=== PATIENT | female | born 1950 | race Caucasian/White ===

== ENCOUNTER 2017-01-06 10:50 | Emergency (ER) | payer MEDICARE, OTHER ==
[~2017-01-06] VITALS: Ht 167.6 cm; Wt 70.3 kg
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
[2017-01-06] MEDS ORDERED: TRAMADOL HCL 50 MG TABLET ONE (11:27)
[2017-01-06] MEDS ORDERED: TRAMADOL HCL 50 MG TABLET PO ONE (11:30)
--- NOTE | 2017-01-06 11:34 | NUR ---
pt medicated as ordered
--- NOTE | 2017-01-06 12:31 | NUR ---
Patient discharged to home in stable condition. Written and verbal after care instructions given. Patient verbalizes understanding of instruction.
[2017-01-06 12:32] VITALS: BP 135/80
== END 2017-01-06 12:32 | disposition home or self-care (01) ==
LOC: ER 10:52
DX: R07.9 Chest pain, unspecified (principal); M54.2 Cervicalgia; I10 Essential (primary) hypertension; V43.52XA Car driver injured in collision with other type car in traffic accident, initial encounter; Y93.89 Activity, other specified; Y92.89 Other specified places as the place of occurrence of the external cause; Y99.9 Unspecified external cause status
CPT/HCPCS: 71010-TC; A4606; Z7610

== ENCOUNTER 2023-05-26 11:35 | Inpatient (IN) | payer BC, MEDICARE, OTHER ==
[~2023-05-26] VITALS: Ht 167.6 cm; Wt 74.4 kg
[2023-05-26] MEDS ORDERED: methylPREDNISolone ACETATE 80 MG/ML VIAL ONE (11:58)
[2023-05-26] MEDS ORDERED: KETOROLAC TROMETHAMINE INJ 30 MG/ML VIAL ONE (11:59)
[2023-05-26] MEDS ORDERED: CYCLOBENZAPRINE 10 MG TABLET ONE (11:59)
[2023-05-26] MEDS ORDERED: MORPHINE SULFATE INJ 2 MG/ML DISP.SYRIN ONE ×2 (11:59→13:31)
[2023-05-26] MEDS ORDERED: KETOROLAC TROMETHAMINE INJ 30 MG/ML VIAL IM ONE (12:00)
[2023-05-26] MEDS ORDERED: MORPHINE SULFATE INJ 2 MG/ML DISP.SYRIN IM ONE ×2 (12:00→13:30)
[2023-05-26] MEDS ORDERED: CYCLOBENZAPRINE 10 MG TABLET PO ONE (12:00)
[2023-05-26] MEDS ORDERED: methylPREDNISolone ACETATE 40 MG/ML VIAL IM ONE (12:00)
[2023-05-26] MEDS ORDERED: methylPREDNISolone SOD SUCC 40 MG/ML VIAL ONE (12:19)
[2023-05-26] MEDS ORDERED: methylPREDNISolone SOD SUCC 40 MG/ML VIAL IM ONE (12:30)
[2023-05-26] MEDS ORDERED: TRAM50TA2 PO (14:11)
[2023-05-26] MEDS ORDERED: CARV25TA2 PO (14:11)
[2023-05-26] MEDS ORDERED: LORA-259 PO (14:11)
[2023-05-26] MEDS ORDERED: METF-442 PO (14:11)
[2023-05-26] MEDS ORDERED: AMLO2.5T4 PO (14:11)
[2023-05-26] MEDS ORDERED: OXYC-133 PO (14:11)
[2023-05-26] MEDS ORDERED: ZOLP5TAB2 PO (14:11)
[2023-05-26 15:00] LABS: BASOPHILS % (AUTO) 0.6 % (0.0-2.0); EOSINOPHILS # (AUTO) 0.1 K/uL (0.0-0.7); HEMATOCRIT 37 % (33-45); HEMOGLOBIN 12.1 g/dL (11.5-14.8); LYMPHOCYTES # (AUTO) 1.3 K/uL (0.8-4.8); LYMPHOCYTES % (AUTO) 15.4 % (20.0-44.0); MEAN CORPUSCULAR HEMOGLOBIN 27 PG (26.0-33.0); MEAN CORPUSCULAR HGB CONC 33 g/dl (31.0-36.0); MEAN CORPUSCULAR VOLUME 83 fL (82-100); MONOCYTES # (AUTO) 0.2 K/uL (0.1-1.30); MONOCYTES % (AUTO) 2.5 % (2.0-12.0); NEUTROPHILS % (AUTO) 80.5 % (43.0-81.0); PLATELET COUNT (AUTO) 283 K/uL (150-450); RED BLOOD CELL COUNT(AUTO) 4.46 MIL/uL (4.0-5.2); RED CELL DISTRIBUTION WIDTH 14.9 % (11.5-15.0); WHITE BLOOD COUNT (AUTO) 8.6 K/uL (4.3-11.0)
[2023-05-26] MEDS ORDERED: ZOLPIDEM TARTRATE 5 MG TABLET PO PRN (15:00)
[2023-05-26] MEDS ORDERED: Z GUARD REMEDY 4 OZ OINT TP PRN (15:00)
[2023-05-26] MEDS ORDERED: DEXTROSE 50%-WATER 50 ML DISP.SYRIN IV PRN (15:00)
[2023-05-26] MEDS ORDERED: ACETAMINOPHEN 325 MG TABLET PO PRN (15:00)
[2023-05-26] MEDS ORDERED: ONDANSETRON HCL/PF 4 MG/2 ML VIAL IVP PRN (15:00)
[2023-05-26] MEDS ORDERED: MAG HYDROX/AL HYDROX/SIMETH 30 ML UDC PO PRN (15:00)
[2023-05-26 15:16] LABS: CALCIUM, SERUM 9.3 mg/dL (8.5-10.1); CARBON DIOXIDE 29 mmol/L (21-32); CHLORIDE 101 mmol/L (98-107); CREATININE 1.1 mg/dL (0.6-1.3); GLUCOSE 146 mg/dL (74-106); POTASSIUM 4.2 mmol/L (3.5-5.1); SODIUM SERUM 138 mmol/L (136-145); UREA NITROGEN, BLOOD 14 mg/dL (7-18)
[2023-05-26 15:22] LABS: ALANINE AMINOTRANSFERASE 33 U/L (12-78); ALBUMIN 3.7 g/dL (3.4-5.0); ALCOHOL, BLOOD < 3 mg/dL (0-10); ALKALINE PHOSPHATASE 117 U/L (46-116); ASPARTATE AMINOTRANSFERASE 18 U/L (15-37); BILIRUBIN,DIRECT 0.1 mg/dL (0.0-0.2); BILIRUBIN,TOTAL 0.3 mg/dL (0.2-1.0)
[2023-05-26 15:23] LABS: ACETAMINOPHEN <10 ug/ml (10-30); SALICYLATE 1.8 mg/dL (2.8-20.0)
[2023-05-26 15:33] LABS: APPEARANCE,URINE CLEAR (CLEAR); BILIRUBIN,URINE NEGATIVE (NEGATIVE); BLOOD, URINE NEGATIVE Ery/uL (NEGATIVE); COLOR,URINE YELLOW (YELLOW); KETONES,URINE NEGATIVE (NEGATIVE); LEUKOCYTE ESTERASE ,URINE NEGATIVE (NEGATIVE); NITRITE, URINE POSITIVE (NEGATIVE); PROTEIN,URINE NEGATIVE (NEGATIVE); UGLUCOSE NEGATIVE (NEGATIVE); UROBILINOGEN,URINE 0.2 EU/dL (0.2)
[2023-05-26 15:37] LABS: AMPHETAMINE, URINE NEGATIVE (NEGATIVE); BARBITURATE, URINE NEGATIVE (NEGATIVE); BENZODIAZEPINE, URINE NEGATIVE (NEGATIVE); CANNABINOID, URINE NEGATIVE (NEGATIVE); COCCAINE, URINE NEGATIVE (NEGATIVE); PHENCYCLIDINE SCREEN,URINE NEGATIVE (NEGATIVE)
[2023-05-26 15:43] LABS: OPIATE, URINE POSITIVE (NEGATIVE)
[2023-05-26 15:45] LABS: ADD URINE CULTURE YES; BACTERIA,URINE None seen /HPF (None Seen); RBC,URINE 0-2 /HPF (0-2); SQUAMOUS EPITHELIAL CELL,UR 0-2 /HPF (None Seen); WBC,URINE 0-2 /HPF (0-3)
[2023-05-26] MEDS ORDERED: KETOROLAC TROMETHAMINE 15 MG/ML VIAL IV PRN (16:00)
[2023-05-26] MEDS: CARVEDILOL 12.5 MG TABLET PO SCH (16:32)
[2023-05-26] MEDS: MORPHINE SULFATE INJ 4 MG/ML DISP.SYRIN IV PRN (16:32)
[2023-05-26] MEDS: BLOOD SUGAR DIAGNOSTIC 1 EACH STRIP VI SCH ×2 (16:44→22:13)
[2023-05-26] MEDS: INSULIN REGULAR, HUMAN 100 UNIT/ML 3 ML VIAL SQ PRN ×2 (16:45→22:15)
[2023-05-26] MEDS: oxyCODONE/APAP (5/325 MG) 1 UDTAB TABLET PO PRN (18:45)
[2023-05-26 20:00] VITALS: BP 145/63; TEMP 97.6; O2SAT 96
[2023-05-26 21:04] VITALS: BP 145/63; TEMP 97.6; O2SAT 96
[2023-05-26] MEDS: LORAZEPAM INJ 2 MG/ML VIAL IV PRN (21:20)
[2023-05-26] MEDS: ZOLPIDEM TARTRATE 5 MG TABLET PO SCH (22:54)
[2023-05-26] MEDS: MAGNESIUM HYDROXIDE 30 ML UDC PO PRN (22:55)
[2023-05-27] VITALS: BP 151/104; O2SAT 96
[2023-05-27] MEDS: oxyCODONE/APAP (5/325 MG) 1 UDTAB TABLET PO PRN ×3 (00:09→18:11)
[2023-05-27 01:00] VITALS: BP 165/80
[2023-05-27] MEDS: LORAZEPAM INJ 2 MG/ML VIAL IV PRN (03:13)
[2023-05-27 06:02] LABS: BASOPHILS % (AUTO) 0.2 % (0.0-2.0); EOSINOPHILS % (AUTO) 0.1 % (0.0-6.0); HEMATOCRIT 36 % (33-45); HEMOGLOBIN 11.8 g/dL (11.5-14.8); LYMPHOCYTES # (AUTO) 1.4 K/uL (0.8-4.8); LYMPHOCYTES % (AUTO) 11.1 % (20.0-44.0); MEAN CORPUSCULAR HEMOGLOBIN 27 PG (26.0-33.0); MEAN CORPUSCULAR HGB CONC 33 g/dl (31.0-36.0); MEAN CORPUSCULAR VOLUME 82 fL (82-100); MONOCYTES # (AUTO) 0.7 K/uL (0.1-1.30); NEUTROPHILS # (AUTO) 10.1 K/uL (1.8-8.9); NEUTROPHILS % (AUTO) 82.6 % (43.0-81.0); PLATELET COUNT (AUTO) 287 K/uL (150-450); RED BLOOD CELL COUNT(AUTO) 4.37 MIL/uL (4.0-5.2); RED CELL DISTRIBUTION WIDTH 14.5 % (11.5-15.0); WHITE BLOOD COUNT (AUTO) 12.2 K/uL (4.3-11.0)
[2023-05-27 06:31] LABS: CALCIUM, SERUM 8.9 mg/dL (8.5-10.1); CREATININE 0.8 mg/dL (0.6-1.3); PHOSPHORUS 3.1 mg/dL (2.5-4.9); POTASSIUM 3.5 mmol/L (3.5-5.1)
[2023-05-27] MEDS: INSULIN REGULAR, HUMAN 100 UNIT/ML 3 ML VIAL SQ PRN ×2 (06:47→17:27)
[2023-05-27] MEDS: BLOOD SUGAR DIAGNOSTIC 1 EACH STRIP VI SCH ×4 (06:47→22:21)
[2023-05-27] MEDS ORDERED: CLONIDINE HCL 0.1 MG TABLET PO PRN (07:30)
[2023-05-27 08:39] VITALS: BP 131/76; TEMP 97.9; O2SAT 97
[2023-05-27] MEDS: MORPHINE SULFATE INJ 4 MG/ML DISP.SYRIN IV PRN (08:45)
[2023-05-27] MEDS: CARVEDILOL 12.5 MG TABLET PO SCH ×2 (08:49→17:29)
[2023-05-27] MEDS: AMLODIPINE BESYLATE 5 MG TABLET PO SCH ×2 (08:50→08:54)
[2023-05-27] MEDS ORDERED: QUETIAPINE FUMARATE 25 MG TABLET PO PRN (10:30)
[2023-05-27] MEDS: HYDROMORPHONE 1 MG/1 ML DISP.SYRIN IV PRN ×3 (11:06→22:21)
[2023-05-27] MEDS: methylPREDNISolone SOD SUCC 40 MG/ML VIAL IV SCH ×2 (11:45→17:29)
[2023-05-27 16:05] VITALS: BP 153/92; TEMP 98.3; O2SAT 98
[2023-05-27] MEDS: MAGNESIUM HYDROXIDE 30 ML UDC PO PRN (16:42)
[2023-05-27] MEDS: *INSULIN REGULAR(HUMULIN R)HUM 100 UNIT/ML VIAL SQ PRN (22:21)
[2023-05-27] MEDS: ZOLPIDEM TARTRATE 5 MG TABLET PO SCH (23:13)
[2023-05-28] MEDS: LORAZEPAM INJ 2 MG/ML VIAL IV PRN (01:32)
[2023-05-28] MEDS: methylPREDNISolone SOD SUCC 40 MG/ML VIAL IV SCH ×3 (02:21→17:20)
[2023-05-28] MEDS: HYDROMORPHONE 1 MG/1 ML DISP.SYRIN IV PRN ×4 (02:21→22:22)
[2023-05-28] MEDS: BLOOD SUGAR DIAGNOSTIC 1 EACH STRIP VI SCH ×4 (06:51→21:58)
[2023-05-28] MEDS: INSULIN REGULAR, HUMAN 100 UNIT/ML 3 ML VIAL SQ PRN ×2 (06:53→12:17)
[2023-05-28 07:30] VITALS: BP 159/87; TEMP 98.2; O2SAT 97
[2023-05-28] MEDS: AMLODIPINE BESYLATE 5 MG TABLET PO SCH ×2 (08:37→20:31)
[2023-05-28] MEDS: CARVEDILOL 12.5 MG TABLET PO SCH ×2 (08:38→17:21)
[2023-05-28] MEDS ORDERED: LORAZEPAM 1 MG TABLET PO PRN (10:30)
[2023-05-28 16:00] VITALS: BP 174/74; TEMP 98.8; O2SAT 98
[2023-05-28] MEDS: MAGNESIUM HYDROXIDE 30 ML UDC PO PRN (17:35)
[2023-05-28] MEDS ORDERED: AMLODIPINE BESYLATE 5 MG TABLET PO SCH (20:00)
[2023-05-28] MEDS: ZOLPIDEM TARTRATE 5 MG TABLET PO SCH (21:40)
[2023-05-28 21:48] VITALS: BP 170/85; TEMP 98.4; O2SAT 98
[2023-05-28] MEDS: *INSULIN REGULAR(HUMULIN R)HUM 100 UNIT/ML VIAL SQ PRN (22:05)
[2023-05-29] MEDS: methylPREDNISolone SOD SUCC 40 MG/ML VIAL IV SCH ×3 (01:26→17:30)
[2023-05-29] MEDS: oxyCODONE/APAP (5/325 MG) 1 UDTAB TABLET PO PRN ×3 (02:28→17:46)
[2023-05-29] MEDS: LORAZEPAM INJ 2 MG/ML VIAL IV PRN (04:10)
[2023-05-29 07:30] VITALS: BP 158/98; TEMP 98.6; O2SAT 98
[2023-05-29] MEDS: BLOOD SUGAR DIAGNOSTIC 1 EACH STRIP VI SCH ×4 (08:06→22:28)
[2023-05-29] MEDS: HYDROMORPHONE 1 MG/1 ML DISP.SYRIN IV PRN (08:40)
[2023-05-29] MEDS: METFORMIN 500 MG TABLET PO SCH ×2 (08:47→17:31)
[2023-05-29] MEDS: CARVEDILOL 12.5 MG TABLET PO SCH ×2 (08:49→17:32)
[2023-05-29] MEDS: hydrALAZINE HCL 25 MG TABLET PO SCH ×3 (08:50→20:47)
[2023-05-29] MEDS ORDERED: CLONIDINE HCL 0.1 MG TABLET PO PRN (10:00)
[2023-05-29] MEDS: DOCUSATE SODIUM 250 MG CAPSULE PO SCH ×2 (11:29→17:31)
[2023-05-29] MEDS: POLYETHYLENE GLYCOL 3350 17 GM POWD.PACK PO SCH (11:29)
[2023-05-29] MEDS ORDERED: MAGNESIUM HYDROXIDE 30 ML UDC PO PRN (11:30)
[2023-05-29] MEDS: INSULIN REGULAR, HUMAN 100 UNIT/ML 3 ML VIAL SQ PRN ×2 (12:38→17:46)
[2023-05-29] MEDS: HYDROMORPHONE INJ 2 MG/ML DISP.SYRIN IV PRN ×2 (15:49→20:13)
[2023-05-29 16:00] VITALS: BP 155/84; TEMP 98.6; O2SAT 97
[2023-05-29] MEDS: QUETIAPINE FUMARATE 25 MG TABLET PO SCH ×2 (17:32→20:50)
[2023-05-29 20:00] VITALS: BP 148/69; TEMP 98.5; O2SAT 98
[2023-05-29] MEDS: AMLODIPINE BESYLATE 5 MG TABLET PO SCH (20:14)
[2023-05-29] MEDS: ZOLPIDEM TARTRATE 5 MG TABLET PO SCH (22:17)
[2023-05-29] MEDS: *INSULIN REGULAR(HUMULIN R)HUM 100 UNIT/ML VIAL SQ PRN (22:33)
[2023-05-30] MEDS: HYDROMORPHONE INJ 2 MG/ML DISP.SYRIN IV PRN ×5 (01:13→21:17)
[2023-05-30] MEDS: methylPREDNISolone SOD SUCC 40 MG/ML VIAL IV SCH ×3 (02:14→17:01)
[2023-05-30] MEDS: hydrALAZINE HCL 25 MG TABLET PO SCH ×3 (05:00→21:17)
[2023-05-30] MEDS: BLOOD SUGAR DIAGNOSTIC 1 EACH STRIP VI SCH ×4 (06:54→22:52)
[2023-05-30] MEDS: INSULIN REGULAR, HUMAN 100 UNIT/ML 3 ML VIAL SQ PRN ×2 (07:04→12:09)
[2023-05-30 07:30] VITALS: BP 170/74; TEMP 98.1; O2SAT 97
[2023-05-30] MEDS: DOCUSATE SODIUM 250 MG CAPSULE PO SCH ×2 (08:39→16:05)
[2023-05-30] MEDS: METFORMIN 500 MG TABLET PO SCH ×2 (08:39→16:05)
[2023-05-30] MEDS: QUETIAPINE FUMARATE 25 MG TABLET PO SCH ×3 (08:39→21:17)
[2023-05-30] MEDS: CARVEDILOL 12.5 MG TABLET PO SCH ×2 (08:40→16:05)
[2023-05-30] MEDS: POLYETHYLENE GLYCOL 3350 17 GM POWD.PACK PO SCH (08:40)
[2023-05-30] MEDS: oxyCODONE/APAP (5/325 MG) 1 UDTAB TABLET PO PRN (11:46)
[2023-05-30 14:10] VITALS: BP 135/80
[2023-05-30 16:00] VITALS: BP 142/78; TEMP 99; O2SAT 97
[2023-05-30 20:00] VITALS: BP 159/65; TEMP 98.6; O2SAT 97
[2023-05-30] MEDS: AMLODIPINE BESYLATE 5 MG TABLET PO SCH (20:30)
[2023-05-30] MEDS: ZOLPIDEM TARTRATE 5 MG TABLET PO SCH (22:24)
[2023-05-30] MEDS: *INSULIN REGULAR(HUMULIN R)HUM 100 UNIT/ML VIAL SQ PRN (22:51)
[2023-05-31] MEDS: methylPREDNISolone SOD SUCC 40 MG/ML VIAL IV SCH ×3 (01:28→16:44)
[2023-05-31] MEDS: HYDROMORPHONE INJ 2 MG/ML DISP.SYRIN IV PRN ×3 (03:16→13:26)
[2023-05-31] MEDS: hydrALAZINE HCL 25 MG TABLET PO SCH ×2 (06:18→13:26)
[2023-05-31] MEDS: oxyCODONE/APAP (5/325 MG) 1 UDTAB TABLET PO PRN ×3 (06:18→16:44)
[2023-05-31] MEDS: INSULIN REGULAR, HUMAN 100 UNIT/ML 3 ML VIAL SQ PRN ×3 (06:51→17:35)
[2023-05-31 07:10] LABS: HEMATOCRIT 38 % (33-45); HEMOGLOBIN 12.4 g/dL (11.5-14.8); LYMPHOCYTES # (AUTO) 0.9 K/uL (0.8-4.8); LYMPHOCYTES % (AUTO) 6.1 % (20.0-44.0); MEAN CORPUSCULAR HEMOGLOBIN 27 PG (26.0-33.0); MEAN CORPUSCULAR HGB CONC 33 g/dl (31.0-36.0); MEAN CORPUSCULAR VOLUME 82 fL (82-100); MONOCYTES # (AUTO) 0.6 K/uL (0.1-1.30); MONOCYTES % (AUTO) 3.9 % (2.0-12.0); PLATELET COUNT (AUTO) 342 K/uL (150-450); RED BLOOD CELL COUNT(AUTO) 4.57 MIL/uL (4.0-5.2); RED CELL DISTRIBUTION WIDTH 14.9 % (11.5-15.0); WHITE BLOOD COUNT (AUTO) 14.5 K/uL (4.3-11.0)
[2023-05-31 07:11] LABS: CALCIUM, SERUM 9.1 mg/dL (8.5-10.1); CREATININE 0.8 mg/dL (0.6-1.3); POTASSIUM 4.1 mmol/L (3.5-5.1)
[2023-05-31 07:30] VITALS: BP 166/79; TEMP 99.1; O2SAT 97
[2023-05-31] MEDS: BLOOD SUGAR DIAGNOSTIC 1 EACH STRIP VI SCH ×3 (08:28→17:34)
[2023-05-31] MEDS: CARVEDILOL 12.5 MG TABLET PO SCH ×2 (08:33→16:06)
[2023-05-31] MEDS: DOCUSATE SODIUM 250 MG CAPSULE PO SCH ×2 (08:33→16:05)
[2023-05-31] MEDS: QUETIAPINE FUMARATE 25 MG TABLET PO SCH ×2 (08:33→16:06)
[2023-05-31] MEDS: METFORMIN 500 MG TABLET PO SCH ×2 (08:34→16:06)
[2023-05-31] MEDS: POLYETHYLENE GLYCOL 3350 17 GM POWD.PACK PO SCH (08:34)
[2023-05-31 16:00] VITALS: BP 176/78; TEMP 99.7; O2SAT 98
[2023-05-31 16:06] VITALS: BP 176/78
[2023-05-31] MEDS: MORPHINE SULFATE INJ 4 MG/ML DISP.SYRIN IV PRN (16:51)
== END 2023-05-31 18:50 | disposition home health service (06) | DRG 552 ==
LOC: ER 11:38 → MED 15:40
PROVIDERS: ADMIT Internal Medicine; ATTEND Internal Medicine
DX: M51.37 Other intervertebral disc degeneration, lumbosacral region (principal); F31.5 Bipolar disorder, current episode depressed, severe, with psychotic features; M47.816 Spondylosis without myelopathy or radiculopathy, lumbar region; E11.9 Type 2 diabetes mellitus without complications; I10 Essential (primary) hypertension; G89.29 Other chronic pain; Z79.84 Long term (current) use of oral hypoglycemic drugs; Z79.899 Other long term (current) drug therapy; F11.90 Opioid use, unspecified, uncomplicated; F41.9 Anxiety disorder, unspecified; F29 Unspecified psychosis not due to a substance or known physiological condition; I70.0 Atherosclerosis of aorta; D35.01 Benign neoplasm of right adrenal gland; M54.30 Sciatica, unspecified side
CPT/HCPCS: 36415; 72131-TC; 72148-TC; 73502; 80048-TC; 80076-TC; 81001; 82962-TC; 83735-TC; 84100-TC; 85025-TC; 87086-TC; 97110-TC; 97116-TC; 97530-TC; 97535-TC; G0378; G0480; J1030; J1040; J1170; J1815; J1885; J2060; J2270; J2920